=== PATIENT | female | born 1945 | race African-American/Black ===

== ENCOUNTER 2016-11-30 07:44 | Day surgery (SDC) | payer OTHER, MEDICAID ==
[2016-11-30] MEDS ORDERED: D5 LR 1000 ML 1,000 ML IV ONE (08:09)
[2016-11-30] MEDS ORDERED: DIPRIVAN VIAL 20 ML ONE (09:45)
[2016-11-30 10:19] VITALS: BP 132/74
== END 2016-11-30 10:25 | disposition home or self-care (01) ==
LOC: SURG1 07:44
PROVIDERS: ATTEND Internal Medicine Gastroenterology
PROC: 0D757ZZ Dilation of Esophagus, Via Natural or Artificial Opening (ICD-10-PCS; principal; 2016-11-30 09:45)
PROC: 0DJ08ZZ Inspection of Upper Intestinal Tract, Via Natural or Artificial Opening Endoscopic (ICD-10-PCS; principal; 2016-11-30 09:45)
PROC: 0DB68ZX Excision of Stomach, Via Natural or Artificial Opening Endoscopic, Diagnostic (ICD-10-PCS; principal; 2016-11-30 09:45)
DX: K25.9 Gastric ulcer, unspecified as acute or chronic, without hemorrhage or perforation (principal); R13.19 Other dysphagia; R10.13 Epigastric pain; K21.9 Gastro-esophageal reflux disease without esophagitis; K22.2 Esophageal obstruction; K44.9 Diaphragmatic hernia without obstruction or gangrene; Z87.19 Personal history of other diseases of the digestive system
CPT/HCPCS: A4217; J3490; J7120

== ENCOUNTER 2017-04-10 20:05 | Emergency (ER) | payer OTHER, MEDICAID ==
[2017-04-10 20:15] VITALS: BP 200/102; BMI 38.9
--- NOTE | 2017-04-10 20:47 | DR.GENAD ---
HPI - PCP Primary Care Physician: vikash - Complaint/Symptoms Chief Complaint Doctors Comments: Patient fell off porch and injured left great toe earlier today. Admits to pain to movement, michaelibetsy 10, sharp. Chief Complaint:: pt fell going up the steps injuired her lt foot - Source History Provided: Patient - Mode of Arrival Mode of Arrival: Wheelchair - Timing Onset of Chief Complaint: 04/10/17 PMH - PMH Past Medical History: Yes Past Medical History: Diabetes, Dyslipidemia, Hypertension Past Surgical History: Yes Surgical History: Joint Replacement Past Surgical History Comment: bilat knees hemmoroidectomy - Family History History of Family Medical Conditions: Yes Family Medical History: Diabetes Mellitus - Social History Does any household member use tobacco: No Alcohol Use: None Do you use any recreational Drugs:: No Lives With: Family Lives Where: Home - infectious screening In the last 2 months have you had wt loss of >10#?: NO Have you had fever, night sweats or hemotysis?: No Have you traveled outside the country in the last 6 months?: No Isolation: Standard ROS - Review of Systems Eyes: No Symptoms Reported ENTM: No Symptoms Reported Respiratoy: No Symptoms Reported Cardiovascular: No Symptoms Reported Gastrointestinal/Abdominal: No Symptoms Reported Genitourinary: No Symptoms Reported Neurological: No Symptoms Reported Musculoskeletal: Foot (left foot 1st digit) Integumentary: No Symptoms Reported Hematologic/Lymphatic: No Symptoms Reported Endocrine: No Symptoms Reported Psychiatric: No Symptoms Reported All Other Systems: Reviewed and Negative PE - Vital Signs Vitals: Temperature 98.6 F Pulse Rate 68 Respiratory Rate 18 Blood Pressure [Left Arm] 156/92 Blood Pressure 200/102 O2 Sat by Pulse Oximetry 100 - General Limitations: No Limitations General Appearance: Alert, In No Apparent Distress - Head Head Exam: Normal Inspection, Atraumatic - Eyes Eye exam: Normal Appearance, PERRL, EOMI - ENT ENT Exam: Normal Exam External Ear Exam: Normal External Inspection TM/Canal Exam: Bilateral Normal Nose Exam: Normal Nose Exam Mouth Exam: Normal Inspection Throat Exam: Normal Inspection - Neck Neck Exam: Normal Inspection - Chest Chest Inspection: Normal Inspection - Respiratory Respiratory Exam: Normal Lung Sounds Bilat Respiratory Exam: Bilateral Clear to Auscultation - Cardiovascular Cardiovascular Exam: Regular Rate, Normal Rhythm - Abdominal Exam Abdominal Exam: Normal Inspection Abdominal Tenderness: negative: RUQ, RLQ, LUQ, LLQ, Epigastrium, Suprapubic, Diffuse, Mild, Moderate, Severe, Other - Extremities Extremities Exam: Normal Inspection - Back Back Exam: Normal Inspection, Full ROM - Neurologic Neurological Exam: Alert, Oriented X3, CN II-XII Intact - Psychiatric Psychiatric Exam: Normal Affect - Skin Skin Exam: Warm, Dry, Intact Course - Reevaluation 1st: Improved ROR - XRAY XRAY Interpreted by: Radiologist (Foot: No acute fracture or dislocation within the left foot. Generalized osteopenia. No change in appearance of mid and hindfoot arthrodesis. Lisfranc joint alignment is maintained. Mild enthesopathic change of the achilles tendon. Impression: No acute radiographic abnormality within the left foot.) - Diagnosis Discharge Problem: Contusion of toe of left foot Qualifiers: Encounter type: initial encounter Toe: great toe Damage to nail status: without damage Qualified Code(s): S90.112A - Contusion of left great toe without damage to nail, initial encounter - Discharge Plan Condition: Stable - Follow ups/Referrals Follow ups/Referrals: INGA JOHNSON [Primary Care Provider] - 3 days - Instructions
[2017-04-10] MEDS ORDERED: TORADOL 60 MG VIAL ONE (20:50)
[2017-04-10] MEDS ORDERED: TORADOL 60 MG VIAL IM ONE (20:50)
--- NOTE | 2017-04-10 21:39 | RAD ---
Three views of the left foot Indication: Blunt trauma to left great toe. Comparison: 10/25/2016 Findings: No acute fracture or dislocation within the left foot. Generalized osteopenia. No change i n appearance of mid and hindfoot arthrodesis hardware. Lisfranc joint alignment is maintained. Mild enthesopathic change of the Achilles tendon. Impression: No acute radiographic abnormality within the left foot. Reported By:
== END 2017-04-10 22:05 | disposition home or self-care (01) ==
LOC: ER 20:08
DX: S90.112A Contusion of left great toe without damage to nail, initial encounter (principal); W10.9XXA Fall (on) (from) unspecified stairs and steps, initial encounter; Y92.9 Unspecified place or not applicable
CPT/HCPCS: 73630; 96372; 99282; 99283; J1885

== ENCOUNTER 2017-04-12 07:20 | Day surgery (SDC) | payer OTHER, MEDICAID ==
[2017-04-12] MEDS ORDERED: D5 LR 1000 ML 1,000 ML IV ONE (07:43)
[2017-04-12] MEDS ORDERED: DIPRIVAN VIAL 20 ML ONE (09:39)
[2017-04-12 10:48] LABS: BASOPHILS % (AUTO) 0.9 % (0.2-1.0); EOSINOPHILS # (AUTO) 0.1 x10^3/uL (0.0-0.2); EOSINOPHILS % (AUTO) 3.1 % (0.9-2.9); HEMATOCRIT 42.1 % (36.0-47.0); HEMOGLOBIN 14.2 g/dL (12.0-16.0); LYMPHOCYTES # (AUTO) 1.7 X10^3/uL (1.3-2.9); LYMPHOCYTES % (AUTO) 38.1 % (21.0-51.0); MEAN CORPUSCULAR HEMOGLOBIN 31.4 pg (27.0-34.0); MEAN CORPUSCULAR HGB CONC 33.6 g/dL (33.0-35.0); MEAN CORPUSCULAR VOLUME 93.4 fL (80.0-100.0); MEAN PLATELET VOLUME 9.6 fL (7.4-11.0); MONOCYTES # (AUTO) 0.4 x10^3/uL (0.3-0.8); MONOCYTES % (AUTO) 9.5 % (0.0-13.0); NEUTROPHILS # (AUTO) 2.2 x10^3/uL (2.2-4.8); NEUTROPHILS % (AUTO) 48.4 % (42.0-75.0); PLATELET COUNT 141 X10^3/uL (150.0-450.0); RED BLOOD COUNT 4.51 X10^6/uL (3.5-5.4); WHITE BLOOD COUNT 4.6 X10^3/uL (3.6-10.0)
[2017-04-12 10:52] LABS: ALANINE AMINOTRANSFERASE 30 Units/L (12-78); ALBUMIN 3.3 g/dL (3.4-5.0); ALKALINE PHOSPHATASE 64 Units/L (46-116); ASPARTATE AMINO TRANSFERASE 26 Units/L (15-37); BLOOD UREA NITROGEN 15 mg/dL (7-18); CALCIUM 8.8 mg/dL (8.5-10.1); CHLORIDE 105 mmol/L (98-107); COR CA(FOR HYPOALB) 9.4 mg/dL (8.5-10.1); COR NA(FOR HYPERGLY) 139 mmol/L (136-145); CREATININE 0.96 mg/dL (0.55-1.02); GLUCOSE 115 mg/dL (65-99); SODIUM 139 mmol/L (136-145); TOTAL PROTEIN 7.1 g/dL (6.4-8.2); eGFR BLACK RACES > 60 (>60); eGFR NON BLACK RACES > 60 (>60)
[2017-04-12 11:30] VITALS: BP 140/81
== END 2017-04-12 10:25 | disposition home or self-care (01) ==
LOC: SURG1 07:20
PROVIDERS: ATTEND Internal Medicine Gastroenterology
PROC: 0DJD8ZZ Inspection of Lower Intestinal Tract, Via Natural or Artificial Opening Endoscopic (ICD-10-PCS; principal; 2017-04-12 10:30)
PROC: 0DB68ZX Excision of Stomach, Via Natural or Artificial Opening Endoscopic, Diagnostic (ICD-10-PCS; principal; 2017-04-12 10:30)
DX: R10.13 Epigastric pain (principal); Z87.11 Personal history of peptic ulcer disease; K29.60 Other gastritis without bleeding; K20.8 Other esophagitis; K21.9 Gastro-esophageal reflux disease without esophagitis
CPT/HCPCS: 36415; 80053; 85025; 99100; A4217; J3490; J7120

== ENCOUNTER 2017-04-23 11:57 | Emergency (ER) | payer OTHER, MEDICAID ==
[2017-04-23 12:02] VITALS: BP 171/90; BMI 38.9
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
== END 2017-04-23 14:12 | disposition home or self-care (01) ==
LOC: ER 12:22
DX: S43.401A Unspecified sprain of right shoulder joint, initial encounter (principal); V87.7XXA Person injured in collision between other specified motor vehicles (traffic), initial encounter
CPT/HCPCS: 73030; 99282; 99283

== ENCOUNTER → 2017-05-07 | Outpatient (CLI) | payer OTHER, MEDICAID ==
[2017-04-23 12:02] VITALS: BP 171/90
== END ==
LOC: LAB 09:34
PROVIDERS: ATTEND Internal Medicine Gastroenterology
DX: K92.1 Melena (principal)
CPT/HCPCS: 82270

== ENCOUNTER → 2017-07-02 | Outpatient (CLI) | payer OTHER, MEDICAID ==
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
--- NOTE | 2017-07-04 10:21 | RAD ---
HISTORY: Nontraumatic pain Study: 3 views of the right hand. Comparison: None Findings: No acute fractures or dislocations. The carpal bones appear well aligned. DIP joint space loss dif fusely as well as previously mentioned wrist degeneration. No significant soft tissue abnormality. IMPRESSION: 1. No acute abnormalities of the right hand. 2. Findings consistent with osteoarthritis. Reported By:
== END ==
LOC: RAD 15:13
PROVIDERS: ATTEND Nurse Practitioner Family
DX: M25.531 Pain in right wrist (principal); M25.541 Pain in joints of right hand
CPT/HCPCS: 73100; 73130